=== PATIENT | female | born 1960 | race Caucasian/White ===

== ENCOUNTER 2021-01-26 20:59 | Emergency (ER) | payer OTHER, SELFPAY ==
--- NOTE | ~2021-01-26 | XR_ITS ---
EXAMINATION: XR ankle LT 2V DATE: 01/26/2021 22:23 INDICATION: Medial left ankle pain. TECHNIQUE: 2 views of left ankle were obtained. COMPARISON: None. FINDINGS: Bone alignment is normal. No acute fracture. There is heterotopic ossification distal to me dial and lateral malleoli from old injury. There is mild osteoarthritis of talonavicular joint. There is an enthesophyte at posterior aspect of calcaneal tuberosity with overlying soft tissue swelling. IMPRESSION: 1. No acute fracture. Reviewed, dictated and finalized at location A. IMPRESSION: 1. No acute fracture.
[2021-01-26 21:01] VITALS: BP 110/74; PULSE 112; RESP 18; TEMP 36.3; O2SAT 99
--- NOTE | 2021-01-26 22:27 | ED.LOWEXIN ---
HPI - Extremity Injury (Lower) General Chief Complaint: Extremity Injury, Lower Stated Complaint: left foot pain x 2 Time Seen by Provider: 01/26/21 21:28 Source: patient Mode of arrival: ambulatory Limitations: no limitations History of Present Illness HPI Narrative: 60-year-old female Complains of 2-day history of atraumatic pain and swelling to the medial left ankle She denies any kind of injury or twisting or misstep but is experience progressive swelling tenderness and discomfort just behind the medial malleolus Related Data Home Medications Medication Instructions Recorded Confirmed alcohol swabs pad TOPICAL 01/26/21 atorvastatin 01/26/21 blood sugar diagnostic [OneTouch 01/26/21 01/26/21 Verio test strips] citalopram mg 01/26/21 fluticasone propionate INTRANASAL 01/26/21 glimepiride mg 01/26/21 lancets [Advocate Lancet] 01/26/21 01/26/21 lancing device [Advocate Lancing 01/26/21 01/26/21 Device] lisinopril 01/26/21 metformin mg PO 01/26/21 multivitamin tablet 01/26/21 pen needle, diabetic [BD 01/26/21 01/26/21 Ultra-Fine Disha Pen Needle] ropinirole mg 01/26/21 sitagliptin [Januvia] mg 01/26/21 Allergies Allergy/AdvReac Type Severity Reaction Status Date / Time aspirin Allergy Mild Hives Unverified 01/26/21 21:05 Penicillins Allergy Mild Difficulty Unverified 01/26/21 21:05 Breathing tetracycline Allergy Mild Hives Unverified 01/26/21 21:05 Review of Systems Review of Systems: All systems reviewed & are unremarkable except as noted in HPI and below Constitutional: Constitutional: Denies headache(s) ENT: Denies headache(s) Cardiovascular: Cardiovascular: Denies dyspnea Respiratory: Respiratory: Denies cough and Denies dyspnea Genitourinary: Genitourinary: Denies urinary frequency Musculoskeletal: Musculoskeletal: Denies myalgias, Denies deformity, Reports arthralgias, Reports joint swelling and Denies numbness Integumentary/Breasts: Skin/Breast: Denies rash and Denies wounds Neurologic: Denies numbness Psychiatric: Psychiatric: Reports no additional psychiatric complaints PMFSH Social History Social History Gender identity (if verbalized by the patient): Female Exam Const: General: cooperative, no acute distress and alert Orientation/consciousness: patient oriented x3 (alert) HENMT: Head: normal to inspection, normocephalic and atraumatic Ears: external ears normal General nose exam: no epistaxis Eyes: Conjunctivae: conjunctivae normal EOM: EOMs intact bilaterally Neck: Neck: normal visual inspection, supple and no JVD Resp: Effort & Inspection: normal respiratory effort and not labored Auscultation: other (BS =) Skin: General skin exam: normal color and no rashes or lesions noted Neuro: General: patient oriented x3 (alert) and moves all extremities Speech: normal speech Extrem: General: no pedal edema Other: There is swelling and tenderness well localized in the area of the posterior tibial tendons behind the left medial malleolus, no redness or warmth, there is pain with plantar flexion of the foot versus resistance, and there is pain with toeing in There is no tenderness elsewhere Achilles is nontender no bony tenderness and no ankle effusion Psych: Affect: normal affect Course Vital Signs Vital signs: Vital Signs Temperature 36.3 C L 01/26/21 21:01 Pulse Rate 112 H 01/26/21 21:01 Respiratory Rate 18 01/26/21 21:01 Blood Pressure 110/74 01/26/21 21:01 Pulse Oximetry 99 01/26/21 21:01 Temperature 36.3 C L 01/26/21 21:01 Pulse Rate 112 H 01/26/21 21:01 Respiratory Rate 18 01/26/21 21:01 Blood Pressure 110/74 01/26/21 21:01 Pulse Oximetry 99 01/26/21 21:01 MDM - Extremity Injury (Lower) Imaging Data Radiologist's impression: ITS Impressions Ankle X-Ray 01/26/21 22:27 IMPRESSION: 1. No acute fracture. Discharge Plan Discharge Clinical Impression: Left tibialis pos
== END 2021-01-26 22:55 | disposition home or self-care (01) ==
PROVIDERS: Emergency Provider Emergency Medicine; PCP Internal Medicine Infectious Disease
DX: M76.822 Posterior tibial tendinitis, left leg (principal)
CPT/HCPCS: 73600; 99283

== ENCOUNTER 2022-01-13 16:18 | Observation (INO) | payer OTHER, SELFPAY ==
[2022-01-13] VITALS (12 sets, daily range): BP systolic 97–143; BP diastolic 80–92; PULSE 125–139; RESP 13–21; TEMP 36.3–37.1; O2SAT 94–99; BMI 25.4
--- NOTE | ~2022-01-13 | CT_ITS ---
EXAMINATION: CTA chest PE protocol DATE: 01/13/2022 20:07 INDICATION: Tachycardia. Elevated d-dimer. TECHNIQUE: Computed tomography angiography (CTA) of the chest was performed with 100 mL Omnipaque-350 intravenous contrast timed to evaluate the pulmonary arteries. Coronal maximum intensity projection 3D-reconstructions were created by the technologist. Automated exposure control and iterative reconst ruction technique were employed. Exam dose: 439.20 mGy-cm total exam DLP. COMPARISON: 07/18/2018 PA and lateral chest FINDINGS: There is diagnostic contrast enhancement of the pulmonary arteries and no evidence of pulmo nary embolism. No thoracic aortic aneurysm or dissection. Normal heart size. No pericardial or pleural effusion. No hilar or mediastinal mass lesion or lymphadenopathy. No change in No pulmonary infiltrate or consolidation or pulmonary mass lesion. Normal is minimal discoid atelecta sis or scarring in the lower lobes. Prominent degenerative changes of the lower cervical spine. Diffuse idiopathic skeletal hyperostosis of the thoracic spine. No suspicious osteolytic or osteoblastic lesions. IMPRESSION: No evidence of pulmonary embolism Reviewed, dictated and finalized at Location A. Reviewed, dictated and finalized at location A.
--- NOTE | ~2022-01-13 | MR_ITS ---
EXAMINATION: MR brain/brain stem wo con DATE: 01/14/2022 09:46 INDICATION: Bilateral upper extremity paresthesias TECHNIQUE: Magnetic resonance imaging (MRI) of the brain and brainstem was performed without intraven ous contrast. Sequences included sagittal and axial T1-weighted SE, axial diffusion-weighted FS SE, a xial T2*-weighted GRE, axial T2-weighted FLAIR Propeller, and axial T2-weighted Propeller. Apparent d iffusion coefficient (ADC) maps were created. COMPARISON: CT dated 07/20/2013. FINDINGS: Brain parenchymal volume is normal for age. No acute intracranial hemorrhage or infarction. Structures of the posterior fossa including 7/8th cranial nerve complexes are normal. No ventriculom egaly or midline shift. Midline sagittal images demonstrate a normal corpus callosum and cranioverteb ral junction. The sinuses are unremarkable. Orbits are symmetric. IMPRESSION: 1. No acute intracranial abnormality. Reviewed, dictated and finalized at location A.
--- NOTE | 2022-01-13 16:49 | ECG_ITS ---
Measurements Intervals [place] Rate: 135 P: 69 ID: [id number] QRS: -27 QRSD: 75 T: 74 QT: 285 QTc: 427 Interpretive Statements SINUS TACHYCARDIA ANTEROSEPTAL MYOCARDIAL INFARCTION , PROBABLY OLD [40+ ms Q WAVE IN V1-V4] ABNORMAL ECG Electronically Signed On 01-14-2022 9:20:50 CDT by Tico Biggs M.D.
--- NOTE | 2022-01-13 17:10 | ED.GENADULT ---
HPI - General Adult General Chief complaint: Unspecified Stated complaint: pain all extremities Time Seen by Provider: 01/13/22 16:54 History of Present Illness HPI narrative: 61-year-old female presents to the emergency room with complaints of atraumatic bilateral arm pain for 3 days. Patient states that she recently started taking Trulicity? about 1 week ago. Patient states that she called her PCP yesterday and was told to come to the emergency room for further evaluation. Denies nausea vomiting, abdominal pain, altered mental status. States the arm pain is associated with cool clammy feeling when she touches her arms. Related Data Home Medications Medication Instructions Recorded Confirmed alcohol swabs pad TOPICAL 01/26/21 atorvastatin 01/26/21 blood sugar diagnostic [OneTouch 01/26/21 01/26/21 Verio test strips] citalopram mg 01/26/21 fluticasone propionate INTRANASAL 01/26/21 glimepiride mg 01/26/21 lancets [Advocate Lancet] 01/26/21 01/26/21 lancing device [Advocate Lancing 01/26/21 01/26/21 Device] lisinopril 01/26/21 metformin mg PO 01/26/21 multivitamin tablet 01/26/21 pen needle, diabetic [BD 01/26/21 01/26/21 Ultra-Fine Disha Pen Needle] ropinirole mg 01/26/21 sitagliptin [Januvia] mg 01/26/21 Allergies Allergy/AdvReac Type Severity Reaction Status Date / Time aspirin Allergy Mild Hives Unverified 01/26/21 21:05 Penicillins Allergy Mild Difficulty Unverified 01/26/21 21:05 Breathing tetracycline Allergy Mild Hives Unverified 01/26/21 21:05 Review of Systems Review of Systems: CONSTITUTIONAL: Denies fever, chills, or sweats. EYES: Denies visual changes, redness, or discharge. ENT: Denies rhinorrhea, congestion, sore throat, or otalgia. CARDIOVASCULAR: Denies chest pain, palpitations, or edema. RESPIRATORY: Denies cough or dyspnea. GASTROINTESTINAL: Denies abdominal pain, nausea, vomiting, or diarrhea. GENITOURINARY: Denies dysuria or hematuria. SKIN: Reports upper extremities are cool and clammy. MUSCULOSKELETAL: Denies back pain, joint pain, or myalgia. NEUROLOGIC: Denies headache, numbness, dizziness, or weakness. PSYCHIATRIC: Denies anxiety or depression. [facility] Past Medical History Medical History (Updated 01/13/22 @ 22:49 by Tico Cardona APRN) Depression Diabetes type 2, uncontrolled Dyslipidemia Hypertension Restless legs syndrome Social History Social History Gender identity (if verbalized by the patient): Female Exam Narrative: GENERAL: Well-appearing, well-nourished, and in no acute distress. HEAD: Normocephalic, atraumatic. EYES: PERRLA and EOMI. ENT: Nares clear, no rhinorrhea or epistaxis. Mucous membranes moist. Oropharynx without tonsillar hypertrophy exudate or other lesions. Bilateral TMs pearly bradshaw nonbulging NECK: Supple. No adenopathy or masses. No carotid bruits or JVD CHEST: Clear to auscultation. No respiratory distress. No wheezes rales or rhonchi HEART: Regular rate and rhythm. No murmur heard. Normal peripheral pulses. ABDOMEN: Soft, nontender, nondistended, normal active bowel sounds. EXTREMITIES: Normal range of motion. No edema. SKIN: Upper extremities are cool to the touch. NEURO: No focal deficits. Alert and oriented x3. Sensation and motor intact to BUE's PSYCH: Normal mood and affect. Course Vital Signs Vital signs: Vital Signs Temperature 37.1 C 01/13/22 16:22 Pulse Rate 139 H 01/13/22 16:22 Respiratory Rate 18 01/13/22 16:22 Blood Pressure 133/83 01/13/22 16:22 Pulse Oximetry 98 01/13/22 16:22 Temperature 37.1 C 01/13/22 16:22 Pulse Rate 127 H 01/13/22 22:16 Respiratory Rate 13 01/13/22 22:16 Blood Pressure 132/82 01/13/22 22:16 Pulse Oximetry 95 01/13/22 22:16 Medical Decision Making Vital Signs Vital Signs: Vital Signs Temperature 37.1 C 01/13/22 16:22 Pulse Rate 139 H 01/13/22 16:22 Respiratory Rate 18
[2022-01-13] MEDS: SODIUM CHLORIDE 0.9% IV 1,000 ML 500 ML IV CONT (17:17)
[2022-01-13 17:57] LABS: Basophils Percent Auto 0.3 % (0.2-1.2); Eosinophils Absolute Auto 0.1 K/mm3 (0-0.3); Eosinophils Percent Auto 0.5 % (0-4.4); Hematocrit 44.7 % (37.0-47.0); Hemoglobin 14.4 g/dL (12.0-15.0); Immature Granulocyte Absolute 0.05 K/mm3 (0.00-0.031); Immature Granulocyte Percent A 0.4 % (0-0.5); Lymphocytes Absolute Auto 1.63 K/mm3 (0.9-3.2); Lymphocytes Percent Auto 14.7 % (18.3-44.2); Mean Corpuscular HGB Conc 32.2 g/dl (32-36); Mean Corpuscular Hemoglobin 29.4 pg (26-34); Mean Corpuscular Volume 91.2 fl (80-100); Mean Platelet Volume 11.6 fl (7.4-10.4); Monocytes Absolute Auto 0.7 K/mm3 (0.1-0.6); Monocytes Percent Auto 5.8 % (2.6-8.5); Neutrophils Absolute Auto 8.7 K/mm3 (1.3-6.7); Neutrophils Percent Auto 78.3 % (45.5-73.1); Platelet Count Result 247 k/mm3 (150-375); Red Cell Distribution Width 13.9 % (11.5-14.5); White Blood Count 11.1 K/mm3 (4.5-10.0)
[2022-01-13 18:11] LABS: Alanine Aminotransferase 29 U/L (4-35); Albumin Level 4.8 g/dL (3.5-5.1); Alkaline Phosphatase 100 U/L (38-126); Anion Gap 16 mmol/L (8-16); Aspartate Amino Transferase 53 U/L (14-36); Blood Urea Nitrogen 32 mg/dL (7-17); Calcium 9.8 mg/dL (8.4-10.2); Carbon Dioxide 14 mmol/L (22-30); Chloride 107 mmol/L (98-107); Estimated CRCL calculation 29 ml/min; Estimated Glomerular Filt Rate 31; Glucose 119 mg/dL (65-110); Potassium 5.1 mmol/L (3.4-5.0); Sodium 137 mmol/L (137-145)
[2022-01-13] MEDS: MORPHINE SULFATE (*CRX) 4 MG/ML INJ IV PUSH (18:57)
[2022-01-13] MEDS: ONDANSETRON INJ 4 MG/2 ML VIAL IV PUSH (18:57)
[2022-01-13 19:39] LABS: D Dimer 7.14 ug/mL (<0.48)
[2022-01-13 19:41] LABS: Troponin I < 0.012 ng/mL (0.000-0.034)
--- NOTE | 2022-01-13 21:09 | PM.IMHP ---
H&P: HPI History of Present Illness Date/Time: 01/13/22 21:09 Chief Complaint: Arm pain Narrative: This is a 61-year-old female with past medical history significant for type 2 diabetes mellitus, hypertension, dyslipidemia. Patient presents to the emergency room due to bilateral for arm pain that was relieved with morphine in the emergency room. Patient has been her usual state of health she denies any strenuous or cyst size or doing any heavy lifting or pushing, she denies any fevers, rigors,chills, cough ,sputum production, chest pain ,PND, orthopnea, leg swelling ,shortness of breath, night sweats, syncope ,dizziness, near-syncope, no sensation of pins and needles, no focal weakness, no vision changes, no neck pain, no headaches. Preliminary workup was significant for heart rate of 130 a lactic acid of 2.7. A D-dimer of 7. A CT angio PE protocol of the chest was not significant for acute pulmonary embolism. Review of Systems Review of Systems: Bilateral arm pain Constitutional: Constitutional: Denies chills, Denies difficulty sleeping, Denies fatigue, Denies fever(s), Denies lethargy, Denies malaise, Denies night sweats, Denies poor appetite, Denies weakness, Denies weight gain and Denies weight loss Eyes: Eyes: Denies change in vision ENT: Denies dysphagia, Denies vertigo, Denies dizziness, Denies nasal congestion, Denies nasal discharge, Denies nasal obstruction and Denies odynophagia Cardiovascular: Cardiovascular: Denies chest pain, Denies pedal edema, Denies irregular heart rhythm, Denies leg edema, Denies lightheadedness, Denies radiating jaw, neck or arm pain, Denies palpitations, Denies dyspnea, Denies dyspnea on exertion, Denies orthopnea and Denies paroxysmal nocturnal dyspnea Respiratory: Respiratory: Denies cough, Denies excessive phlegm production and Denies dyspnea Gastrointestinal: Gastrointestinal: Denies abdominal pain, Denies dyspepsia, Denies heartburn, Denies nausea and Denies vomiting Genitourinary: Genitourinary: Denies dysuria and Denies flank pain Musculoskeletal: Musculoskeletal: Denies myalgias and Denies muscle cramps Comments: Forearm pain bilaterally Integumentary/Breasts: Skin/Breast: Denies rash Neurologic: Denies vertigo, Denies dizziness, Denies focal weakness, Denies Sensory deficit (Neuro), Denies paresthesias and Denies weakness Psychiatric: Psychiatric: Reports no additional psychiatric complaints and Reports as per HPI Endocrine: Endocrine: Denies cold intolerance, Denies fatigue, Denies flushing, Denies heat intolerance, Denies polyphagia, Denies polydipsia, Denies polyuria and Denies palpitations Hematologic/Lymphatic: Hematologic/Lymphatic: Reports no additional hematologic/lymphatic complaints and Reports as per HPI Allergic/Immunologic: Allergic/Immunologic: Reports no additional allergic/immunologic complaints and Reports as per HPI PMFSH Past Medical History Medical History (Updated 01/14/22 @ 04:08 by Yisel Pelayo MD) Depression Diabetes type 2, uncontrolled Dyslipidemia Hypertension Restless legs syndrome Social History Social History Smoking packs per day: 1 Smoking cigarettes per day: 20.0 Years smoked: 1 Smoking pack-years: 1.00 Smoking status: Former smoker Tobacco type: cigarettes Second hand tobacco smoke exposure: Yes (childhood) Smoking end date: 10/29/82 Alcohol intake: never Substance use: never Gender identity (if verbalized by the patient): Female Spiritual care concerns: No Meds Home Medications and Allergies Home Medications Medication Instructions Recorded Confirmed Type alcohol swabs 1 pad TOPICAL TID 01/26/21 01/13/22 History atorvastatin 20 mg PO BID 01/26/21 01/13/22 History blood sugar diagnostic [OneTouch 01/26/21 01/13/22 History Verio test strips] citalopram 40 mg PO BID 01/26/21 01/13/22 History glimepiride 4 mg PO BID 01/26/21 01/13/22 History la
[2022-01-13 22:14] LABS: Amphetamine Screen Urine Negative (Negative); Barbiturate Screen Urine Negative (Negative); Benzodiazepines Screen Urine Negative (Negative); Cannabinoid Screen Urine Negative (Negative); Cocaine Screen Urine Negative (Negative); Methadone Screen Urine Negative (Negative); Opiate Screen Urine Positive (Negative); Phencyclidine Screen Urine Negative (Negative)
[2022-01-13 22:16] LABS: Creatine Kinase 173 U/L (30-135)
[2022-01-13 22:17] LABS: Lactic Acid Reflex 2.6 mmol/L (0.7-2.1)
--- NOTE | 2022-01-13 22:18 | PC.NURSE ---
Patient care report called to BUCK Hector on . All questions answered at this time.
--- NOTE | 2022-01-13 22:20 | PC.NURSE ---
Patient's mother's phone number is [phone].
--- NOTE | 2022-01-13 22:26 | PC.NURSE ---
Professional Services Manager updated patient's mother per patient's request.
--- NOTE | 2022-01-13 22:45 | ADMGEN ---
This patient, Mishel Patel, was admitted to Medical Room 341-01. Patient/family oriented to hospital policies and general routines including ID bracelet, bed and alarms, visiting hours, pain management, procedures, bathroom and other care routines, personal items, smoking policy, room service/diet, and visiting hours. Information on how to activate the Rapid Response Team has been discussed. Patient/Family are encouraged to report perceived risks to care and to ask questions if they do not understand what they are told or what they should do.
[2022-01-14] VITALS (10 sets, daily range): BP systolic 106–121; BP diastolic 60–75; PULSE 100–129; RESP 16; TEMP 36.2–37.9; O2SAT 97–100
--- NOTE | 2022-01-14 | ECHO_ITS ---
Patient Info Name: Mishel Patel Age: 61 years : 1960 Gender: Female Ht: 62 in Wt: 138 lbs BSA: 1.67 m2 HR: 115 bpm BP: 106 / 75 mmHg Heart Rhythm: Tachycardia Technical Quality: Fair Exam Date: 01/14/2022 8:02 AM Exam Location: [facility] Pulmonary Exam Room: 341 Patient Status: Outpatient Admit Date: 01/14/2022 Staff Ordering Physician: Yisel Pelayo MD [employer] Material Technician: Laureen Mayfield RDCS Attending Provider: Yisel Pelayo MD Referring Physician: Pierce HOLLOWAY; Exam Type: CA echo doppler color flow Study Info Indications - tachycardia Complete two-dimensional, color flow and Doppler transthoracic echocardiogram is performed. Summary 1. Complete two-dimensional, color flow and Doppler transthoracic echocardiogram is performed. 2. Left ventricular chamber dimension is normal. 3. Left ventricular systolic function is normal, estimated at 65-70%. 4. There is mildly increased left ventricular wall thickness. 5. The left ventricular diastolic function is grade I diastolic dysfunction. 6. There is mild aortic valve calcification. 7. There is moderate aortic valve sclerosis. 8. The mitral valve has thickened leaflets and calcified annulus. 9. There is mild tricuspid valve regurgitation. Left Ventricle Left ventricular chamber dimension is normal. Left ventricular systolic function is normal, estimated at 65-70%. There is mildly increased left ventricular wall thickness. The left ventricular diastolic function is grade I diastolic dysfunction. Right Ventricle Right ventricular chamber dimension is normal. Right ventricular systolic function is normal. Left Atria Left atrial chamber dimension is normal. Right Atria Right atrial chamber dimension is normal. Atrial Septum Intact interatrial septum visualized by color flow imaging. Aortic Valve The aortic valve is trileaflet. There is moderate aortic valve sclerosis. There is no aortic valve stenosis. There is trace aortic valve regurgitation. There is mild aortic valve calcification. Pulmonic Valve The pulmonic valve is normal. There is no pulmonic valve stenosis. There is trace pulmonic regurgitation. Mitral Valve The mitral valve has thickened leaflets and calcified annulus. There is no mitral valve stenosis. There is trace mitral valve regurgitation. Tricuspid Valve The tricuspid valve leaflets are normal. There is no significant tricuspid valve stenosis. There is mild tricuspid valve regurgitation. No pulmonary hypertension, estimated pulmonary arterial systolic pressure is 32 mmHg. Pericardium/Pleural The pericardium appears normal. There is trivial pericardial effusion. Inferior Vena Cava Normal inferior vena cava with >50% collapse upon inspiration consistent with normal right atrial pressure, 10 mmHg. Left Ventricular Outflow Tract Name Value Normal LVOT 2D LVOT Diameter 2.0 cm LVOT Doppler LVOT Peak Gradient 6 mmHg LVOT Mean Gradient 4 mmHg LVOT VTI 18 cm LVOT VTI/AV VTI Ratio
[2022-01-14 00:55] LABS: Reflex Lactic Acid Yes or No Add Lactic
[2022-01-14 02:02] LABS: Lactic Acid 1.7 mmol/L (0.7-2.1)
[2022-01-14] MEDS: LEVOTHYROXINE SODIUM 25 MCG TABLET PO (06:40)
[2022-01-14 08:01] LABS: Glucose Point of Care 115 mg/dl (65-105)
[2022-01-14] MEDS: CITALOPRAM HYDROBROMIDE 20 MG TABLET 40 MG PO (08:37)
[2022-01-14] MEDS: MULTIVITAMINS THERAPEUTIC TAB (*BKC) 1 TABLET PO (08:38)
[2022-01-14] MEDS: lisinopriL 20 MG TABLET PO (08:38)
[2022-01-14] MEDS: ENOXAPARIN 40 MG/0.4 ML SYRINGE SUB-Q (08:38)
[2022-01-14] MEDS: ATORVASTATIN 20 MG TABLET PO (08:38)
[2022-01-14 09:08] LABS: Basophils Absolute Auto 0.1 K/mm3 (0.0-0.1); Basophils Percent Auto 0.6 % (0.2-1.2); Eosinophils Absolute Auto 0.2 K/mm3 (0-0.3); Hematocrit 47.7 % (37.0-47.0); Hemoglobin 15.2 g/dL (12.0-15.0); Immature Granulocyte Absolute 0.06 K/mm3 (0.00-0.031); Immature Granulocyte Percent A 0.5 % (0-0.5); Lymphocytes Absolute Auto 2.79 K/mm3 (0.9-3.2); Lymphocytes Percent Auto 23.6 % (18.3-44.2); Mean Corpuscular HGB Conc 31.9 g/dl (32-36); Mean Corpuscular Hemoglobin 28.7 pg (26-34); Mean Corpuscular Volume 90.2 fl (80-100); Mean Platelet Volume 11.3 fl (7.4-10.4); Monocytes Absolute Auto 0.9 K/mm3 (0.1-0.6); Monocytes Percent Auto 7.9 % (2.6-8.5); Neutrophils Absolute Auto 7.7 K/mm3 (1.3-6.7); Neutrophils Percent Auto 65.4 % (45.5-73.1); Platelet Count Result 276 k/mm3 (150-375); Red Blood Count 5.29 M/mm3 (4.2-5.4); Red Cell Distribution Width 14.1 % (11.5-14.5); White Blood Count 11.8 K/mm3 (4.5-10.0)
[2022-01-14 09:21] LABS: Alanine Aminotransferase 28 U/L (4-35); Alkaline Phosphatase 97 U/L (38-126); Anion Gap 13 mmol/L (8-16); Aspartate Amino Transferase 47 U/L (14-36); Bilirubin,Total 1.1 mg/dL (0.2-1.3); Blood Urea Nitrogen 31 mg/dL (7-17); Calcium 9.9 mg/dL (8.4-10.2); Carbon Dioxide 19 mmol/L (22-30); Chloride 106 mmol/L (98-107); Estimated CRCL calculation 25 ml/min; Estimated Glomerular Filt Rate 31; Glucose 116 mg/dL (65-110); Potassium 4.8 mmol/L (3.4-5.0); Sodium 138 mmol/L (137-145)
--- NOTE | 2022-01-14 10:49 | PM.IMPN ---
Progress Note: A&P Assessment and Plan (1) Pain in both forearms: Code(s): M79.632 - Pain in left forearm; M79.631 - Pain in right forearm Status: Acute Assessment and Plan: Distributed in a hand glove fashion Relieved with pain medication Pending MRI of the brain and brainstem in the morning Echocardiogram in the morning Muscle strength is 5/5. (2) Tachycardia: Code(s): R00.0 - Tachycardia, unspecified Status: Acute Assessment and Plan: Likely secondary to dysautonomia patient with type 2 diabetes mellitus (3) Autonomic orthostatic hypotension: Code(s): I95.1 - Orthostatic hypotension Status: Acute Assessment and Plan: Secondary to diabetes (4) Restless legs syndrome: Code(s): G25.81 - Restless legs syndrome Status: Acute Assessment and Plan: Continue ropinirole (5) Type 1 diabetes mellitus: Code(s): E10.9 - Type 1 diabetes mellitus without complications Status: Acute Assessment and Plan: Holding metformin, Januvia, glimepiride. Insulin sliding scale as needed (6) CARLOS (acute kidney injury): Code(s): N17.9 - Acute kidney failure, unspecified Status: Acute Assessment and Plan: Patient is aware of her baseline renal function, however labs from report a creatinine of 1.0-1.4. patients current creatinine 1.7. Monitor renal function Subjective Date/time seen: 01/14/22 10:49 Patient is alert and oriented x4. Evaluated her at bedside this morning. Patient lying comfortably. She denies any acute upper extremity pain. Patient is waiting to go to MRI this morning. [place] And is unaware of her baseline renal function. Patient's creatinine is 1.7 this morning. Previous records from 2013 to 2016 creatinine of 1-1.4. DVT sees any elevated. D-dimer was elevated and CTA ruled out pulmonary embolism. Patient does not have any unilateral swelling to bilateral upper and lower extremities. Patient is extremely anxious and has a significant history for skin picking/tearing, multiple healed scars to bilateral upper extremities Review of Systems Review of Systems: All systems reviewed & are unremarkable except as noted in HPI and below Exam Narrative: General: No acute distress. Mental Status: Awake, alert and oriented to person, place, and time with clear speech. Skin: Skin in warm, dry and intact without rashes or lesions. Multiple scars to bilateral upper extremities Head: Normocephalic and atraumatic. Eyes: Conjunctivae are clear without exudates or hemorrhage. Sclera is non-icteric. EOM are intact, PERRLA. Ears: The external ear and canal are non-tender and without swelling or discharge. Nose: Nasal mucosa is pink and moist. Septum midline. Nares patent bilaterally. Throat: Oral mucosa pink and moist with good dentition. Tongue midline. Neck: The neck supple without adenopathy. Trachea midline. No JVD. Cardiac: S1 and S2 regular rate and rhythm. No murmurs, gallops, or rubs auscultated. Respiratory: Chest wall symmetric, nontender and without deformity or trauma. Respirations even and unlabored. Lung sounds are clear to auscultation in all lobes bilaterally without wheezes, rhonchi, or rales. Abdominal: Abdomen soft, round and non-tender to palpation. Bowel sounds present and normoactive in all 4 quadrants. Spine: Neck and back with grossly normal curvature, no deformity in appearance or signs of trauma. Extremities: Upper and lower extremities atraumatic without tenderness or deformity. Full range of motion and muscle strength 5/5 to all extremities bilaterally. Neurological: Full and symmetric motor and light touch sensation bilaterally. Cranial nerves II-XII grossly intact. Objective Data Vital Signs Vital Signs: Vital Signs - 24 hr 01/13/22 16:22 01/13/22 16:27 01/13/22 17:17 Temperature 98.7 F Pulse Rate 139 H 136 H 132 H Respiratory Rate 18 21 H Bloo
--- NOTE | 2022-01-14 11:53 | ECG_ITS ---
Measurements Intervals [place] Rate: 119 P: 57 PA: 177 QRS: -19 QRSD: 79 T: 38 QT: 310 QTc: 437 Interpretive Statements SINUS TACHYCARDIA ANTEROSEPTAL MYOCARDIAL INFARCTION , PROBABLY OLD [40+ ms Q WAVE IN V1-V4] LEFTWARD AXIS ABNORMAL ECG COMPARED TO ECG 01/13/2022 16:59:25 NO SIGNIFICANT CHANGES Electronically Signed On 01-14-2022 12:23:01 CDT by Tico Biggs M.D.
[2022-01-14 12:00] LABS: Glucose Point of Care 125 mg/dl (65-105)
[2022-01-14 12:54] LABS: Lactic Acid Reflex 3.8 mmol/L (0.7-2.1)
[2022-01-14 12:56] LABS: Creatine Kinase 153 U/L (30-135); Magnesium 1.7 mg/dL (1.6-2.3)
[2022-01-14] MEDS: SODIUM CHLORIDE 0.9% IV 500 ML IV CONT (13:00)
[2022-01-14 13:21] LABS: Procalcitonin 0.2 ng/mL
[2022-01-14 14:40] LABS: Amphetamine Screen Urine Negative (Negative); Barbiturate Screen Urine Negative (Negative); Benzodiazepines Screen Urine Negative (Negative); Cannabinoid Screen Urine Negative (Negative); Cocaine Screen Urine Negative (Negative); Methadone Screen Urine Negative (Negative); Opiate Screen Urine Positive (Negative); Phencyclidine Screen Urine Negative (Negative)
--- NOTE | 2022-01-14 15:10 | PC.NURSE ---
RN has kept provider informed of changes in condition throughout the day, calling on several occasions.
[2022-01-14] MEDS: SODIUM CHLORIDE 0.9% IV 1,000 ML 125 ML IV CONT (15:39)
[2022-01-14 15:43] LABS: Reflex Lactic Acid Yes or No Add Lactic
[2022-01-14 16:40] LABS: CRP < 0.5 mg/dL (<1.0)
[2022-01-14 16:45] LABS: Glucose Point of Care 176 mg/dl (65-105)
[2022-01-14 21:18] LABS: Lactic Acid Reflex 1.7 mmol/L (0.7-2.1)
[2022-01-15] VITALS (7 sets, daily range): BP systolic 107–108; BP diastolic 51–62; PULSE 80–116; RESP 16; TEMP 35.8–36.3; O2SAT 98–100
[2022-01-15] MEDS: SODIUM CHLORIDE 0.9% IV 1,000 ML 125 ML IV CONT ×2 (00:13→03:53)
[2022-01-15 05:34] LABS: Basophils Percent Auto 0.6 % (0.2-1.2); Eosinophils Absolute Auto 0.3 K/mm3 (0-0.3); Hematocrit 39.4 % (37.0-47.0); Hemoglobin 12.6 g/dL (12.0-15.0); Immature Granulocyte Absolute 0.02 K/mm3 (0.00-0.031); Immature Granulocyte Percent A 0.3 % (0-0.5); Lymphocytes Absolute Auto 2.04 K/mm3 (0.9-3.2); Lymphocytes Percent Auto 31.7 % (18.3-44.2); Mean Corpuscular Hemoglobin 29.2 pg (26-34); Mean Corpuscular Volume 91.2 fl (80-100); Mean Platelet Volume 11.5 fl (7.4-10.4); Monocytes Absolute Auto 0.6 K/mm3 (0.1-0.6); Neutrophils Absolute Auto 3.5 K/mm3 (1.3-6.7); Neutrophils Percent Auto 54.4 % (45.5-73.1); Platelet Count Result 167 k/mm3 (150-375); Red Blood Count 4.32 M/mm3 (4.2-5.4); Red Cell Distribution Width 13.6 % (11.5-14.5); White Blood Count 6.4 K/mm3 (4.5-10.0)
[2022-01-15 05:39] LABS: Lactic Acid Reflex 1.2 mmol/L (0.7-2.1)
[2022-01-15 05:47] LABS: Alanine Aminotransferase 23 U/L (4-35); Albumin Level 4.1 g/dL (3.5-5.1); Alkaline Phosphatase 80 U/L (38-126); Anion Gap 8 mmol/L (8-16); Aspartate Amino Transferase 35 U/L (14-36); Bilirubin,Total 0.6 mg/dL (0.2-1.3); Blood Urea Nitrogen 27 mg/dL (7-17); CRP < 0.5 mg/dL (<1.0); Calcium 8.7 mg/dL (8.4-10.2); Carbon Dioxide 20 mmol/L (22-30); Chloride 112 mmol/L (98-107); Creatine Kinase 121 U/L (30-135); Estimated CRCL calculation 30 ml/min; Estimated Glomerular Filt Rate 38; Glucose 102 mg/dL (65-110); Magnesium 1.7 mg/dL (1.6-2.3); Potassium 4.5 mmol/L (3.4-5.0); Sodium 140 mmol/L (137-145)
[2022-01-15] MEDS: LEVOTHYROXINE SODIUM 25 MCG TABLET PO (06:41)
[2022-01-15 07:45] LABS: Glucose Point of Care 104 mg/dl (65-105)
[2022-01-15] MEDS: METOPROLOL SUCCINATE EXT REL 12.5 MG TABCR PO (08:17)
[2022-01-15] MEDS: MULTIVITAMINS THERAPEUTIC TAB (*BKC) 1 TABLET PO (08:18)
[2022-01-15] MEDS: ATORVASTATIN 20 MG TABLET PO (08:18)
[2022-01-15] MEDS: ENOXAPARIN 40 MG/0.4 ML SYRINGE SUB-Q (08:18)
[2022-01-15] MEDS: CITALOPRAM HYDROBROMIDE 20 MG TABLET 40 MG PO (08:18)
[2022-01-15 11:50] LABS: Glucose Point of Care 100 mg/dl (65-105)
--- NOTE | 2022-01-15 13:23 | PM.DS ---
DS: Admitting Diagnosis Discharge Date 01/15/2022 Admitting Diagnosis Pain in bilateral upper extremities Tachycardia Restless leg syndrome Diabetes mellitus type 2 without complications DS: Discharge Diagnosis Discharge Diagnosis (1) Pain in both forearms: Code(s): M79.632 - Pain in left forearm; M79.631 - Pain in right forearm Status: Acute Assessment and Plan: Distributed in a hand glove fashion, pain resolved upon admission Relieved with pain medication MRI of the brain negative for acute abnormalities Echocardiogram revealed normal LVEF and grade 1 diastolic dysfunction Muscle strength is 5/5. (2) Tachycardia: Code(s): R00.0 - Tachycardia, unspecified Status: Acute Assessment and Plan: Likely secondary to dysautonomia patient with type 2 diabetes mellitus Administered Toprol-XL 12.5 mg daily, patient able to tolerate medication (3) Autonomic orthostatic hypotension: Code(s): I95.1 - Orthostatic hypotension Status: Acute Assessment and Plan: Resolved Patient required IV fluids, renal function back to baseline (4) Restless legs syndrome: Code(s): G25.81 - Restless legs syndrome Status: Acute Assessment and Plan: Continue ropinirole (5) Type 1 diabetes mellitus: Code(s): E10.9 - Type 1 diabetes mellitus without complications Status: Acute Assessment and Plan: Holding metformin, Januvia, glimepiride. Insulin sliding scale as needed (6) CARLOS (acute kidney injury): Code(s): N17.9 - Acute kidney failure, unspecified Status: Acute Assessment and Plan: Patient is aware of her baseline renal function, however labs from report a creatinine of 1.0-1.4. patients current creatinine 1.7. Monitor renal function IV fluids initiated, renal function back to baseline. DS: Summary Hospital Course Reason for hospitalization: Bilateral upper extremity pain Hospital Course: Patient is 61-year-old female with a past medical history of diabetes mellitus type 2, hypertension and dyslipidemia. Patient presented to the emergency department due to bilateral upper extremity pain that was relieved with morphine in the emergency department. The patient reports that she is usually this healthy state. However recently the patient started having pain in her upper extremities no of [id number] medications. While in the emergency department labs and imaging were obtained. S patient had WBC of 11.1, hemoglobin 14.4, hematocrit 44.7 and platelet count 247, sodium 137 a potassium of 5.1, BUN 32 creatinine 1.7-patient's baseline creatinine is 1.0-1.4. Patient had a mild CARLOS which was treated during her hospitalization with IV fluids and she responded well. Patient did not have orthostatic hypotension after fluids repeat administered. Her lisinopril was discontinued and she was placed on Toprol-XL to manage her tachycardia. Troponins were negative, MRI of the brain negative, but chest CTA negative for acute pulmonary disease and image of her ankle was obtained which is negative for acute fracture. An echocardiogram was performed which revealed a normal LVEF however she does have a grade 1 diastolic dysfunction. It is advised that the patient follow-up with the primary care physician and possible typer for further evaluation. She was sent home with a 30 day event monitor. During the patient's hospitalization her bilateral upper extremity pain dissipated and she no longer had complaints related to this. Patient lab work is essentially unremarkable on the day of discharge. Status at Discharge Cognitive/behavioral status at discharge: Alert and oriented x4 Functional status at discharge: independent ambulation Overall status at discharge: patient is back to baseline Time Spent with Patient Time attestation: Total time spent providing and/or coordinating discharge services: Time spent: Less than 30 minutes Exam Narrative:
== END 2022-01-15 16:20 | disposition home or self-care (01) ==
LOC: ANHED 18:27 → ANH3MED 22:49
PROVIDERS: Emergency Medicine; Admitting Provider Internal Medicine; Emergency Provider Nurse Practitioner Family; PCP Internal Medicine Infectious Disease; Visit Provider Nurse Practitioner Family
DX: M79.602 Pain in left arm (principal); M79.601 Pain in right arm; N17.9 Acute kidney failure, unspecified; I11.9 Hypertensive heart disease without heart failure; I95.1 Orthostatic hypotension; E11.9 Type 2 diabetes mellitus without complications; E78.5 Hyperlipidemia, unspecified; G25.81 Restless legs syndrome; R00.0 Tachycardia, unspecified; Z87.891 Personal history of nicotine dependence; Z79.84 Long term (current) use of oral hypoglycemic drugs; Z79.899 Other long term (current) drug therapy
CPT/HCPCS: 36415; 70551; 71275; 80053; 80307; 82550; 82948; 83605; 83735; 84145; 84439; 84443; 84480; 84484; 85025; 85380; 86140; 87040; 93005; 93306; 96360; 96361; 96372; 96374; 96375; 99285; A9270; G0378; J1650; J2270; J2405; J7030; J7040; Q9967